=== PATIENT | male | born 1990 | race American Indian/Alaskan Native ===

== ENCOUNTER 2016-09-07 12:54 | Emergency (ER) | payer OTHER ==
[2016-09-07 14:45] LABS: Anion Gap 22 mmol/L; BUN/Creatinine Ratio 13.33; Blood Urea Nitrogen 12 mg/dL (9-20); Calcium 9.5 mg/dL (8.4-10.2); Carbon Dioxide 22 mmol/L (22-30); Chloride 99.3 mmol/L (98-107); Glucose 121 mg/dL (75-100); Potassium 3.8 mmol/L (3.6-5.0); Sodium 139 mmol/L (137-145)
[2016-09-07 14:50] LABS: Urine Drugs of Abuse Note Disclamer
[2016-09-07 15:08] LABS: Basophils % (Auto) 0.5 % (0.0-1.8); Eosinophils % (Auto) 1.3 % (0.0-4.3); Hematocrit 46.7 % (35.5-45.6); Mean Corpuscular HGB Conc 32 % (32-34); Mean Corpuscular Hemoglobin 26 pg (28-32); Mean Corpuscular Volume 81 fl (84-94); Platelet Count 271 K/mm3 (140-440); Red Blood Count 5.75 M/mm3 (3.65-5.03); White Blood Count 9.7 K/mm3 (4.5-11.0)
[2016-09-07 15:12] LABS: Bilirubin,Urine NEG (Negative); Blood,Urine NEG (Negative); Ketones,Urine NEG (Negative); Leukocyte Esterase,Urine NEG (Negative); Mucus,Urine 2+ /HPF; Nitrite,Urine NEG (Negative); Protein,Urine <15 mg/dL mg/dL (Negative); Urobilinogen,Urine < 2.0 mg/dL (<2.0)
[2016-09-08] MEDS ORDERED: TORADOL IM ONE (03:10)
--- NOTE | 2016-09-08 03:16 | Emergency Department Report ---
ED General Adult HPI - General Chief complaint: Medical Clearance Stated complaint: DRUG USE/DETOX Time Seen by Provider: 09/08/16 02:36 Source: patient, RN notes reviewed Mode of arrival: Ambulatory Limitations: No Limitations - History of Present Illness Initial comments: This is a 26-year-old male. He is previously unknown to me. He presents to the ER requesting medical clearance for cocaine detox. The patient reports last using cocaine approximately 24 hours prior to presentation. He snorts it and smokes it. He denies IV drug use. He denies other coingestions. He is not homicidal. He is not suicidal. He denies access to guns and firearms, and he denies hallucinations. The patient complains of chronic back pain which is not new, worsening or different. He has no bladder or bowel retention or incontinence, and he has no saddle anesthesia. The back pain does not radiate anywhere. Location: back Severity scale (0 -10): 7 Quality: aching Consistency: intermittent Improves with: rest Worsens with: movement Associated Symptoms: denies: confusion, chest pain, cough, diaphoresis, fever/ chills, headaches, loss of appetite, malaise, nausea/vomiting, rash, seizure, shortness of breath, syncope, weakness - Related Data Allergies Allergy/AdvReac Type Severity Reaction Status Date / Time No Known Allergies Allergy Unverified 09/07/16 13:26 ED Review of Systems ROS: Stated complaint: DRUG USE/DETOX Other details as noted in HPI Constitutional: denies: malaise Eyes: denies: vision change ENT: denies: epistaxis Respiratory: denies: cough Cardiovascular: denies: chest pain Gastrointestinal: denies: abdominal pain Genitourinary: denies: dysuria Musculoskeletal: back pain Skin: denies: rash, lesions Neurological: denies: weakness, confusion, abnormal gait Psychiatric: denies: homicidal thoughts, suicidal thoughts ED Past Medical Hx - Past Medical History Previous Medical History?: Yes Additional medical history: Back Pain - Surgical History Past Surgical History?: No - Social History Smoking Status: Current Every Day Smoker Substance Use Type: Cocaine ED Physical Exam - General Limitations: No Limitations General appearance: alert, in no apparent distress, obese - Head Head exam: Present: atraumatic, normocephalic - Eye Eye exam: Present: normal appearance, EOMI. Absent: nystagmus - ENT ENT exam: Present: normal exam, normal orophraynx, mucous membranes moist, normal external ear exam - Neck Neck exam: Present: normal inspection, full ROM. Absent: tenderness, meningismus - Respiratory Respiratory exam: Present: normal lung sounds bilaterally. Absent: respiratory distress, wheezes, rales, rhonchi, stridor, chest wall tenderness, accessory muscle use, decreased breath sounds, prolonged expiratory - Cardiovascular Cardiovascular Exam: Present: regular rate, normal rhythm, normal heart sounds. Absent: bradycardia, tachycardia, irregular rhythm, systolic murmur, diastolic murmur, rubs, gallop - GI/Abdominal GI/Abdominal exam: Present: soft, normal bowel sounds. Absent: distended, tenderness, guarding, rebound, rigid, pulsatile mass - Rectal Rectal exam: Present: deferred - Extremities Exam Extremities exam: Present: normal inspection, full ROM, normal capillary refill. Absent: tenderness, pedal edema, joint swelling - Back Exam Back exam: Present: normal inspection, full ROM, paraspinal tenderness. Absent : tenderness, CVA tenderness (R), vertebral tenderness - Neurological Exam Neurological exam: Present: alert, oriented X3, normal gait, other (Extraocular movements intact. Tongue midline. No facial droop. Facial sensation intact to light touch in the V1, V2, V3 distribution bilaterally. 5 and 5 strength in 4 extremities.. Sensation is intact to light touch in 4 extremities.). Absent : motor sensory deficit - Psychiatric Psychiatric exam: Present: normal affect, normal mood. Absent: homicidal ideation, suicidal ideation - Skin Skin exam: Present: warm, dry, intact, normal color. Absent: rash ED Course Vital Signs 09/07/16 09/08/16 09/08/16 13:26 00:17 02:51 Temperature 98.1 F Pulse Rate 80 76 82 Respiratory 18 16 18 Rate Blood Pressure 153/103 156/110 Blood Pressure 124/65 [Left] O2 Sat by Pulse 97 100 99 Oximetry 09/08/16 02:52 Temperature Pulse Rate Respiratory 18 Rate Blood Pressure Blood Pressure [Left] O2 Sat by Pulse 99 Oximetry - Reevaluation(s) Reevaluation #1: 09/08/16 04:02 differential diagnosis: Chronic muscular back pain, cocaine dependence, medical clearance for detox Assessment and plan: 26-year-old male who is clinically sober, has a GCS of 15, NIH score of 0, does not require 1013 at this time, here for medical clearance for detox. At this point in time, it does not appear that there is any immediate medical contraindication to detox therapy. Back pain is chronic, he walks with a steady gait, there is no clinical indication of epidural compression syndrome. ED Medical Decision Making - Lab Data Result diagrams: 09/07/16 13:47 09/07/16 13:47 Vital Signs 09/07/16 09/08/16 09/08/16 13:26 00:17 02:51 Temperature 98.1 F Pulse Rate 80 76 82 Respiratory 18 16 18 Rate Blood Pressure 153/103 156/110 Blood Pressure 124/65 [Left] O2 Sat by Pulse 97 100 99 Oximetry 09/08/16 02:52 Temperature Pulse Rate Respiratory 18 Rate Blood Pressure Blood Pressure [Left] O2 Sat by Pulse 99 Oximetry Lab Results 09/07/16 09/07/16 09/07/16 Range/Units 13:47 13:47 13:47 WBC 9.7 (4.5-11.0) K/mm3 RBC 5.75 H (3.65-5.03) M/mm3 Hgb 15.0 (11.8-15.2) gm/dl Hct 46.7 H (35.5-45.6) % MCV 81 L (84-94) fl MCH 26 L (28-32) pg MCHC 32 (32-34) % RDW 13.0 L (13.2-15.2) % Plt Count 271 (140-440) K/mm3 Lymph % (Auto) 24.2 (13.4-35.0) % [place] % (Auto) 6.9 (0.0-7.3) % Eos % (Auto) 1.3 (0.0-4.3) % Baso % (Auto) 0.5 (0.0-1.8) % Lymph # 2.3 (1.2-5.4) K/mm3 [place] # 0.7 (0.0-0.8) K/mm3 Eos # 0.1 (0.0-0.4) K/mm3 Baso # 0.1 (0.0-0.1) K/mm3 Seg Neutrophils % 67.1 (40.0-70.0) % Seg Neutrophils # 6.5 (1.8-7.7) K/mm3 Sodium 139 (137-145) mmol/L Potassium 3.8 (3.6-5.0) mmol/L Chloride 99.3 (98-107) mmol/L Carbon Dioxide 22 (22-30) mmol/L Anion Gap 22 mmol/L BUN 12 (9-20) mg/dL Creatinine 0.9 (0.8-1.5) mg/dL Estimated GFR > 60 ml/min BUN/Creatinine Ratio 13.33 % Glucose 121 H (75-100) mg/dL Calcium 9.5 (8.4-10.2) mg/dL Urine Color (Yellow) Urine Turbidity (Clear) Urine pH (5.0-7.0) Ur Specific [place] (1.003-1.030) Urine Protein (Negative) mg/dL Urine Glucose (UA) (Negative) mg/dL Urine Ketones (Negative) mg/dL Urine Blood (Negative) Urine Nitrite (Negative) Urine Bilirubin (Negative) Urine Urobilinogen (<2.0) mg/dL Ur Leukocyte Esterase (Negative) Urine WBC (Auto) (0.0-6.0) /HPF Urine RBC (Auto) (0.0-6.0) /HPF U Epithel Cells (Auto) (0-13.0) /HPF Urine Mucus /HPF Urine Opiates Screen Urine Methadone Screen Ur Barbiturates Screen Ur Phencyclidine Scrn Ur Amphetamines Screen U Benzodiazepines Scrn Urine Cocaine Screen U Marijuana (THC) Screen Drugs of Abuse Note Plasma/Serum Alcohol < 0.01 (0-0.07) gm% 09/07/16 09/07/16 Range/Units 14:26 14:26 WBC (4.5-11.0) K/mm3 RBC (3.65-5.03) M/mm3 Hgb (11.8-15.2) gm/dl Hct (35.5-45.6) % MCV (84-94) fl MCH (28-32) pg MCHC (32-34) % RDW (13.2-15.2) % Plt Count (140-440) K/mm3 Lymph % (Auto) (13.4-35.0) % [place] % (Auto) (0.0-7.3) % Eos % (Auto) (0.0-4.3) % Baso % (Auto) (0.0-1.8) % Lymph # (1.2-5.4) K/mm3 [place] # (0.0-0.8) K/mm3 Eos # (0.0-0.4) K/mm3 Baso # (0.0-0.1) K/mm3 Seg Neutrophils % (40.0-70.0) % Seg Neutrophils # (1.8-7.7) K/mm3 Sodium (137-145) mmol/L Potassium (3.6-5.0) mmol/L Chloride (98-107) mmol/L Carbon Dioxide (22-30) mmol/L Anion Gap mmol/L BUN (9-20) mg/dL Creatinine (0.8-1.5) mg/dL Estimated GFR ml/min BUN/Creatinine Ratio % Glucose (75-100) mg/dL Calcium (8.4-10.2) mg/dL Urine Color Yellow (Yellow) Urine Turbidity Clear (Clear) Urine pH 5.0 (5.0-7.0) Ur Specific [place] 1.030 (1.003-1.030) Urine Protein <15 mg/dl (Negative) mg/dL Urine Glucose (UA) Neg (Negative) mg/dL Urine Ketones Neg (Negative) mg/dL Urine Blood Neg (Negative) Urine Nitrite Neg (Negative) Urine Bilirubin Neg (Negative) Urine Urobilinogen < 2.0 (<2.0) mg/dL Ur Leukocyte Esterase Neg (Negative) Urine WBC (Auto) 1.0 (0.0-6.0) /HPF Urine RBC (Auto) 6.0 (0.0-6.0) /HPF U Epithel Cells (Auto) < 1.0 (0-13.0) /HPF Urine Mucus 2+ /HPF Urine Opiates Screen Presumptive negative Urine Methadone Screen Presumptive negative Ur Barbiturates Screen Presumptive negative Ur Phencyclidine Scrn Presumptive negative Ur Amphetamines Screen Presumptive negative U Benzodiazepines Scrn Presumptive negative Urine Cocaine Screen Presumptive positive U Marijuana (THC) Screen Presumptive negative Drugs of Abuse Note Disclamer Plasma/Serum Alcohol (0-0.07) gm% Critical care attestation.: If time is entered above; I have spent that time in minutes in the direct care of this critically ill patient, excluding procedure time. ED Disposition Clinical Impression: Medical clearance for psychiatric admission, Back pain Disposition: DISCHARGED TO HOME OR SELFCARE Is pt being admited?: No Does the pt Need Aspirin: No Condition: Stable Instructions: Cocaine Abuse (ED), Chronic Back Pain (ED) Additional Instructions: Laboratory studies are unremarkable. At this point in time, it does not appear that there is any immediate medical contact indication to psychiatric admission/ evaluation/consultation. Discontinue consumption of cocaine. it is bad for your health. Follow-up with a primary care doctor within the next week. Dr. Russell Sepulveda is a local primary care doctor. Rest and avoid heavy lifting. Avoid strenuous physical activity. Take Tylenol every 4 hours, Motrin every 6 hours as food as needed for pain. Return to the ER right away with new pain, worsened pain, migration of pain, fevers or chills, nausea or vomiting, inability to tolerate liquid feeds. Referrals: PRIMARY MD DANIS [Primary Care Provider] - 3-5 Days RUSSELL SEPULVEDA MD [Staff Physician] - 3-5 Days NING OZUNA MD [Staff Physician] - 3-5 Days
[2016-09-08 04:36] VITALS: BP 126/79
== END 2016-09-08 04:35 | disposition home or self-care (01) ==
LOC: ED 12:54
DX: M54.9 Dorsalgia, unspecified (principal); G89.29 Other chronic pain; F17.200 Nicotine dependence, unspecified, uncomplicated; F12.10 Cannabis abuse, uncomplicated
CPT/HCPCS: 36415; 80048; 80307; 81001; 85025; 96372; 99283; G0480; J1885; 80320

== ENCOUNTER 2018-03-16 22:21 | Emergency (ER) | payer SELFPAY ==
[2018-03-16] MEDS ORDERED: NACL 0.9% 1000 ML 1,000 ML IV ONE (23:48)
[2018-03-17 00:13] LABS: Basophils # (Auto) 0.1 K/mm3 (0.0-0.1); Basophils % (Auto) 0.6 % (0.0-1.8); Eosinophils # (Auto) 0.2 K/mm3 (0.0-0.4); Eosinophils % (Auto) 2.4 % (0.0-4.3); Hemoglobin 14.2 gm/dl (11.8-15.2); Lymphocytes # (Auto) 3.6 K/mm3 (1.2-5.4); Lymphocytes % (Auto) 38.7 % (13.4-35.0); Mean Corpuscular HGB Conc 33 % (32-34); Mean Corpuscular Hemoglobin 27 pg (28-32); Mean Corpuscular Volume 83 fl (84-94); Monocytes # (Auto) 0.7 K/mm3 (0.0-0.8); Monocytes % (Auto) 8.1 % (0.0-7.3); Platelet Count 231 K/mm3 (140-440); Red Blood Count 5.19 M/mm3 (3.65-5.03); Red Cell Distribution Width 13.3 % (13.2-15.2)
[2018-03-17 01:24] LABS: Alanine Aminotransferase 65 units/L (7-56); Albumin 4.6 g/dL (3.9-5); BUN/Creatinine Ratio 18; Blood Urea Nitrogen 14 mg/dL (9-20); Calcium 9.6 mg/dL (8.4-10.2); Hemolysis Index 11; Lipase 15 units/L (13-60)
[2018-03-17 02:00] LABS: Bilirubin,Urine NEG (Negative); Blood,Urine NEG (Negative); Color,Urine Yellow (Yellow); Mucus,Urine 3+ /HPF; Urobilinogen,Urine < 2.0 mg/dL (<2.0)
[2018-03-17 03:20] VITALS: BP 136/72
[2018-03-17] MEDS ORDERED: NACL 0.9% 1000 ML 1,000 ML IV ONE (05:38)
[2018-03-17] MEDS ORDERED: ZOFRAN IV ONE (05:38)
--- NOTE | 2018-03-17 05:51 | Emergency Department Report ---
ED Abdominal Pain HPI - General Chief Complaint: Abdominal Pain Stated Complaint: ABD,AND BACK PAIN AND HEADACHE Source: patient Mode of arrival: Ambulatory Limitations: No Limitations - History of Present Illness Initial Comments: Patient's 27-year-old [place] male who presents for abdominal pain low back pain and headache intermittently for the last 4 years denies fever or chills his history of GERD smokes and EtOH occasionally is no fever chills a day patient denies hematuria for frequency or urgency no nausea vomiting MD Complaint: abdominal pain (O) Onset/Timin -: year(s) Migration to: no migration Severity: moderate Severity scale (0 -10): 4 Quality: burning Consistency: intermittent Improves With: eating Worsens With: nothing Associated Symptoms: nausea - Related Data Previous Rx's Medication Instructions Recorded Last Taken Type Famotidine [Pepcid] 20 mg PO BID #30 tablet 03/17/18 Unknown Rx Naproxen [Naprosyn] 500 mg PO BID PRN #30 tablet 03/17/18 Unknown Rx Polyethylene Glycol 3350 [Miralax 17 gm PO QDAY PRN #10 packet 03/17/18 Unknown Rx 3350] Allergies Allergy/AdvReac Type Severity Reaction Status Date / Time Iodinated Contrast- Oral and Allergy Hives Verified 03/16/18 23:50 IV Dye ED Review of Systems ROS: Stated complaint: ABD,AND BACK PAIN AND HEADACHE Other details as noted in HPI Constitutional: denies: chills, fever Eyes: denies: eye pain, eye discharge, vision change ENT: denies: ear pain, throat pain Respiratory: denies: cough, shortness of breath, wheezing Cardiovascular: denies: chest pain, palpitations Endocrine: no symptoms reported Gastrointestinal: abdominal pain, nausea. denies: vomiting, diarrhea, constipation, hematemesis, hematochezia Genitourinary: denies: urgency, dysuria, frequency, hematuria, discharge, testicular pain, testicular mass Musculoskeletal: back pain. denies: joint swelling, arthralgia Skin: denies: rash, lesions Neurological: denies: headache, weakness, paresthesias Psychiatric: denies: anxiety, depression Hematological/Lymphatic: denies: easy bleeding, easy bruising ED Past Medical Hx - Past Medical History Previous Medical History?: No Additional medical history: Back Pain - Surgical History Past Surgical History?: No - Social History Smoking Status: Never Smoker Substance Use Type: Marijuana - Medications Home Medications: Home Medications Medication Instructions Recorded Confirmed Last Taken Type Famotidine [Pepcid] 20 mg PO BID #30 tablet 03/17/18 Unknown Rx Naproxen [Naprosyn] 500 mg PO BID PRN #30 tablet 03/17/18 Unknown Rx Polyethylene Glycol 3350 [Miralax 17 gm PO QDAY PRN #10 packet 03/17/18 Unknown Rx 3350] ED Physical Exam - General Limitations: No Limitations General appearance: alert, in no apparent distress - Head Head exam: Present: atraumatic, normocephalic - Eye Eye exam: Present: normal appearance - ENT ENT exam: Present: mucous membranes moist - Neck Neck exam: Present: normal inspection - Respiratory Respiratory exam: Present: normal lung sounds bilaterally. Absent: respiratory distress - Cardiovascular Cardiovascular Exam: Present: regular rate, normal rhythm, normal heart sounds. Absent: systolic murmur, diastolic murmur, rubs, gallop - GI/Abdominal GI/Abdominal exam: Present: soft, normal bowel sounds. Absent: tenderness, bruit, hernia - Rectal Rectal exam: Present: deferred - Extremities Exam Extremities exam: Present: normal inspection - Back Exam Back exam: Present: normal inspection - Neurological Exam Neurological exam: Present: alert, oriented X3 - Psychiatric Psychiatric exam: Present: normal affect, normal mood - Skin Skin exam: Present: warm, dry, intact, normal color. Absent: rash ED Course Vital Signs 03/16/18 03/16/18 03/17/18 23:42 23:44 03:19 Temperature 98.6 F 98.6 F 98.5 F Pulse Rate 73 68 Respiratory 20 18 Rate Blood Pressure 151/99 Blood Pressure 136/72 [Left] O2 Sat by Pulse 95 98 Oximetry ED Medical Decision Making - Lab Data Result diagrams: 03/16/18 23:52 03/16/18 23:52 Laboratory Tests 03/16/18 03/16/18 03/16/18 23:52 23:52 Unknown WBC 9.3 RBC 5.19 H Hgb 14.2 Hct 43.0 MCV 83 L MCH 27 L MCHC 33 RDW 13.3 Plt Count 231 Lymph % (Auto) 38.7 H [place] % (Auto) 8.1 H Eos % (Auto) 2.4 Baso % (Auto) 0.6 Lymph # 3.6 [place] # 0.7 Eos # 0.2 Baso # 0.1 Seg Neutrophils % 50.2 Seg Neutrophils # 4.7 Sodium 137 Potassium 3.9 Chloride 102.1 Carbon Dioxide 20 L Anion Gap 19 BUN 14 Creatinine 0.8 Estimated GFR > 60 BUN/Creatinine Ratio 18 Glucose 97 Calcium 9.6 Total Bilirubin 0.20 AST 44 H ALT 65 H Alkaline Phosphatase 82 Total Protein 7.4 Albumin 4.6 Albumin/Globulin Ratio 1.6 Lipase 15 Urine Color Yellow Urine Turbidity Clear Urine pH 5.0 Ur Specific [place] 1.036 H Urine Protein 30 mg/dl Urine Glucose (UA) Neg Urine Ketones Neg Urine Blood Neg Urine Nitrite Neg Urine Bilirubin Neg Urine Urobilinogen < 2.0 Ur Leukocyte Esterase Neg Urine WBC (Auto) 2.0 Urine RBC (Auto) 7.0 U Epithel Cells (Auto) 1.0 Urine Mucus 3+ - Medical Decision Making Symptoms improved with IV hydration and medications given in ED patient now tolerating by mouth intake without nausea vomiting plan result KUB for constipation diagnoses mild dehydration, GERD, and likely constipation plan: Pepcid, MiraLAX, naproxen when necessary pain , patient will continue to rehydrate patient will follow with PCP or affiliated at [facility] in 2-3 days. Discussing with patient and patient verbalizes agreement and understanding with same patient will be DC'd home in stable condition upon received a KUB. ; Critical care attestation.: If time is entered above; I have spent that time in minutes in the direct care of this critically ill patient, excluding procedure time. ED Disposition Clinical Impression: Mild dehydration Constipation Qualifiers: Constipation type: unspecified constipation type Qualified Code(s): K59.00 - Constipation, unspecified Disposition: DC-01 TO HOME OR SELFCARE Is pt being admited?: No Does the pt Need Aspirin: No Condition: Stable Instructions: Constipation (ED), High Fiber Diet (ED), Dehydration (ED), Gastroesophageal Reflux Disease (ED), Diet for Ulcers and Gastritis (ED) Prescriptions: Famotidine [Pepcid] 20 mg PO BID #30 tablet Naproxen [Naprosyn] 500 mg PO BID PRN #30 tablet PRN Reason: pain Polyethylene Glycol 3350 [Miralax 3350] 17 gm PO QDAY PRN #10 packet PRN Reason: constipation Referrals: PRIMARY CARE, [Primary Care Provider] - 3-5 Days Forms: Work/School Release Form(ED) Time of Disposition: 07:00
--- NOTE | 2018-03-17 07:06 | XRay Report ---
FINAL REPORT PROCEDURE: XR ABDOMEN 1V AP TECHNIQUE: Abdominal series, including supine and upright AP views. HISTORY: abd pain constipation COMPARISON: No prior studies are available for comparison. FINDINGS: Bowel gas pattern:Nonobstructive . Masses or calcifications:None . Bony structures:No significant abnormality . Pneumoperitoneum:None . Other:No significant findings . IMPRESSION: No acute abnormality.
== END 2018-03-17 07:20 | disposition home or self-care (01) ==
LOC: ED 22:21
DX: E86.0 Dehydration (principal); K59.00 Constipation, unspecified; K21.9 Gastro-esophageal reflux disease without esophagitis; Z91.018 Allergy to other foods
CPT/HCPCS: 36415; 74018; 80053; 81001; 83690; 85025; 96361; 96374; 99284; J2405; J7030